=== PATIENT | female | born 1950 | race Caucasian/White ===

== ENCOUNTER 2017-09-02 07:29 | Emergency (ER) | payer MEDICARE ==
[2017-09-02] MEDS ORDERED: Norflex 60 MG/2 ML IM ONE (07:45)
[2017-09-02] MEDS ORDERED: TORAdol 30 mg Injection IM ONE (07:45)
--- NOTE | 2017-09-02 07:50 | ERPHSYRPT ---
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 She denies radiating pain, abdominal pain, vomiting , fever, chills, or urinary changes. She was nauseated, able to walk with pain, denies severe leg weakness, or numbness. She denies back surgery or injuries in the past. Timing/Duration: yesterday Method of Injury: lifting Quality: sharp Back Pain Location: lumbar spine Severity of Pain-Max: severe Severity of Pain-Current: severe Modifying Factors: Improves With: movement Associated Symptoms: nausea Previous symptoms: no prior history Allergies/Adverse Reactions: No Known Drug Allergies Allergy (Unverified 09/02/17 08:04) - Review of Systems Constitutional: No Symptoms Musculoskeletal: Back Pain All Other Systems: Reviewed and Negative - Nursing Vital Signs Nursing Vital Signs: Initial Vital Signs Temperature 97.3 F 09/02/17 07:42 Pulse Rate 47 L 09/02/17 07:42 Respiratory Rate 18 09/02/17 07:42 Blood Pressure 133/61 09/02/17 07:42 O2 Sat by Pulse Oximetry 96 09/02/17 07:42 Pain Scale Pain Intensity 5 - Physical Exam General Appearance: no apparent distress Eye Exam: eyes nml inspection Ears, Nose, Throat Exam: normal ENT inspection, moist mucous membranes Neck Exam: normal inspection, non-tender Respiratory Exam: normal breath sounds, lungs clear Cardiovascular Exam: regular rate/rhythm, normal heart sounds, normal peripheral pulses, No murmur Gastrointestinal Exam: soft, normal bowel sounds, No tenderness, No distention, No mass, No guarding, No pulsatile mass, No rebound, No organomegaly Back Exam: normal inspection, decreased range of motion, muscle spasm (right paralumbar area), No CVA tenderness, No vertebral tenderness, No rash Extremity Exam: normal inspection, No calf tenderness, No stephen's sign, No pedal edema Peripheral Pulses: dorsalis-pedis (R): 3+, dorsalis-pedis (L): 3+ Neurologic Exam: alert, oriented x 3, normal mood/affect, sensation nml, other ( negative straight leg raising both sides), No motor deficits Skin Exam: normal color, warm, dry, No rash Lymphatic Exam: No adenopathy SpO2 Interpretation: normal Oxygen Delivery: Room Air - Course Nursing assessment & vital signs reviewed: Yes - Radiology Exams L-Spine X-ray Interpretation: Reviewed by me, Teleradiologist Report, Other (DJD, no compression.) Ordered Tests: Active Orders 24 hr Category Date Time Status LUMBAR LIMITED (2 OR 3 VIEWS) Stat Exams 09/02/17 07:45 Completed CULTURE,URINE Stat Lab 09/02/17 07:58 Received UA W/ MICROSCOPIC Stat Lab 09/02/17 07:58 Completed Medication Summary Discontinued Medications Generic Name Dose Route Start Last Admin Trade Name Freq PRN Reason Stop Dose Admin Ketorolac Tromethamine 60 mg 09/02/17 07:45 09/02/17 08:06 Toradol 30 Mg Injection IM 09/02/17 07:46 60 mg STAT ONE Administration Ketorolac Tromethamine Confirm 09/02/17 08:02 Toradol 30 Mg Injection Administered 09/02/17 08:03 Dose 60 mg .ROUTE .STK-MED ONE Orphenadrine Citrate 60 mg 09/02/17 07:45 09/02/17 08:07 Norflex 60 Mg/2 Ml IM 09/02/17 07:46 60 mg STAT ONE Administration Orphenadrine Citrate Confirm 09/02/17 08:02 Norflex 60 Mg/2 Ml Administered 09/02/17 08:03 Dose 60 mg .ROUTE .STK-MED ONE Lab/Rad Data: Laboratory Results 09/02/17 Range/Units 07:58 Ur Collection Type VOID Urine Color YELLOW (YELLOW) Urine Appearance CLEAR (CLEAR) Urine pH 6.0 (5-6) Ur Specific [place] 1.015 (1.005-1.025) Urine Protein NEGATIVE (Negative) Urine Ketones NEGATIVE (NEGATIVE) Urine Blood 5-10 (0-5) Brayan/ul Urine Nitrite NEGATIVE (NEGATIVE) Urine Bilirubin NEGATIVE (NEGATIVE) Urine Urobilinogen NORMAL (0-1) mg/dL Ur Leukocyte Esterase 1+ (NEGATIVE) Urine Microscopic RBC 0-2 (0-2) /HPF Urine Microscopic WBC 2-5 (0-5) /HPF Ur Epithelial Cells FEW (FEW) /HPF Urine Bacteria FEW (NEGATIVE) /HPF Urine Mucus MODERATE (NEGATIVE) /HPF Urine Culture Reflexed YES (NO) Urine Glucose NEGATIVE (NEGATIVE) mg/dL Specimen Received 09/02/17 0800 - Progress Progress: improved Progress Note: 09/02/17 09:42 Pt states, she improved after Toradol 60 mg im, and Norflex 60mg im, she is stable, no fever or vomiting, she was educated about her X ray result, discharged with instructions to rest x 3-4 days, apply moist heat to her back, follow up with her physician in 3-4 days, and return if severe pain, sudden leg weakness, numbness, or loss of bladder, bowel control. Counseled pt/family regarding: lab results, diagnosis, need for follow-up, rad results - Departure Time of Disposition: 09:44 Departure Disposition: Home Clinical Impression: Back muscle spasm UTI (urinary tract infection) Qualifiers: Urinary tract infection type: site unspecified Hematuria presence: without hematuria Qualified Code(s): N39.0 - Urinary tract infection, site not specified Condition: Stable Critical Care Time: No Referrals: REYNALDO TAYLOR NP [Primary Care Provider] - Instructions: Low Back Pain (DC) Additional Instructions: Rest x 3-4 days, apply moist heat to painful muscles, return if severe pain, sudden leg weakness, numbness, loss of bladder, bowel control or fever> 102 F!
[2017-09-02] MEDS ORDERED: TORAdol 30 mg Injection ONE (08:02)
[2017-09-02] MEDS ORDERED: Norflex 60 MG/2 ML ONE (08:02)
[2017-09-02 08:22] LABS: Appearance CLEAR (CLEAR); Bacteria FEW /HPF (NEGATIVE); Bilirubin NEGATIVE (NEGATIVE); Epithelial Cells FEW /HPF (FEW); Glucose NEGATIVE (NEGATIVE); Ketones NEGATIVE (NEGATIVE); Leukocyte Esterase 1+ (NEGATIVE); Mucus MODERATE /HPF (NEGATIVE); Nitrite NEGATIVE (NEGATIVE); Protein,Urine Dip NEGATIVE (Negative); RBC 0-2 /HPF (0-2); Specific Gravity 1.015 (1.005-1.025); Urobilinogen NORMAL mg/dL (0-1)
[2017-09-02 09:08] VITALS: BP 140/62
--- NOTE | 2017-09-02 09:19 | XRAY ---
Indication: Low back pain following lifting. Comparison: None 3 views of the lumbar spine demonstrates 5 lumbar vertebral segments in normal alignment with osteopenia, mild multilevel thoracolumbar degenerative spondylosis, L5-S1 disc space narrowing, and bilateral L5-S1 degenerative facet hypertrophy. No other bony, articular, or soft tissue abnormalities.
[2017-09-02] MEDS ORDERED: KEFLEX 500 MG PO ONE (09:44)
[2017-09-02] MEDS ORDERED: KEFLEX 500 MG ONE (09:47)
[2017-09-02 09:55] VITALS: PULSE 50; O2SAT 99
== END 2017-09-02 09:55 | disposition home or self-care (01) ==
LOC: ED 07:29
DX: M62.830 Muscle spasm of back (principal); M54.5 Low back pain; X50.0XXA Overexertion from strenuous movement or load, initial encounter; N39.0 Urinary tract infection, site not specified
CPT/HCPCS: 72100; 81000; 87086; 96372; 99284; J1885; J2360; A9270-GY